=== PATIENT | female | born 2000 | race Caucasian/White ===

== ENCOUNTER → 2020-12-27 | Outpatient (CLI) | payer MEDICAID ==
[~2020-12-27] MED LIST: IBU600 MG PO; NATURAL IRON65 MG; PRENATAL FORMU1 EAC3 PO
== END ==
LOC: DIA.ED 10:16
DX: O24.419 Gestational diabetes mellitus in pregnancy, unspecified control (principal)
CPT/HCPCS: G0108

== ENCOUNTER 2021-02-26 09:59 | Inpatient (IN) | payer MEDICAID ==
[~2021-02-26] VITALS: Ht 160 cm; Wt 110.9 kg
[2021-02-26] VITALS (45 sets, daily range): BP systolic 120–180; BP diastolic 58–104; PULSE 59–148; TEMP 98.1–102.1
[2021-02-26 11:04] LABS: HEMOGLOBIN 11.7 g/dl (12.5-16.0); MEAN CELL VOLUME 82 fl (80.0-100.0); MEAN CORPUSCULAR HEMOGLOBIN 27 pg (27.0-31.0); MEAN CORPUSCULAR HGB CONC 33 g/dl (33.0-37.0); MEAN PLATELET VOLUME 10.6 fl (7.4-10.4); PLATELET COUNT 280 K/mm3 (130-400); REDCELL DISTRIBUTION WIDTH-CV 15.1 % (11.5-14.5)
[2021-02-26 11:06] LABS: HEMATOCRIT 35.1 % (37.0-47.0)
--- NOTE | 2021-02-26 11:20 | NUR ---
1015 PATIENT HERE FOR COMPLAINTS OF SROM AT 0900 THIS MORNING. EFM ON FHT 125 GOOD ACCELERATIONS. BABY VERY ACTIVE. CONTRACTIONS 5 MIN APART BUT PALPATE MILD. SVE /-2 LARGE AMOUNT CLEAR FLUID. AMNIOTRACE POSITIVE. DR CRUZ CALLED AND UPDATED ON ALL ABOVE INFORMATION. ORDERS TO ADMIT FOR LABOR. PATIETN ADMITTED AT THIS TIME AND IV STARTED. CONSENTS ALL SIGNED FOR INDUCTION WITH VERBAL UNDERSTANDING NOTED.
--- NOTE | 2021-02-26 11:24 | NUR ---
1100 PATIENT GDM. FIRST BLOOD SUGAR 95.
[2021-02-26] MEDS ORDERED: PRENATAL FORMU1 EAC3 PO (11:41)
[2021-02-26] MEDS ORDERED: NATURAL IRON65 MG (11:42)
--- NOTE | 2021-02-26 11:45 | NUR ---
1145 pitocin started per order for no changes at this time
[2021-02-26 11:53] LABS: BAND 3 % (0-10); LYMPHOCYTE 12 % (20.0-51.0); NEUTROPHILS 84 % (42.0-75.2); PLATELET ESTIMATE NORMAL (NORMAL)
--- NOTE | 2021-02-26 13:27 | NUR ---
1305 Lucero HERNANDEZ CRNA AT BEDSIDE FOR EPIDURAL PLACEMENT. PATIENT SITS ON EDGE OF BED. PATIENT TOLERATES PLACEMENT WELL. TEST DOSE AT 1311. SEE DUSTIN CHINCHILLA NOTES FOR QUESTIONS.
--- NOTE | 2021-02-26 17:26 | NUR ---
1725 PATIENT FEELS SOME PRESSURE. SVE 9/100/0 BLOODY SHOW NOTED. ATIENT REPOSISITONED TO HIGH RIGHT, POSITIONED WITH PEANUT BALL. DR ROLES CALLED AND UPDATED. NO NEW ORDERS NOTED
--- NOTE | 2021-02-26 22:18 | NUR ---
2018 PRACTICE PUSH WITH PT, INSTRUCTED ON PUSHING TECHNIQUES, MOVES BABY WELL WITH PUSH 2022 - CONTRERAS CATHETER DC'D WITH 200CC DARK YELLOW URINE OUT, CONTINUED TO PUSH WITH PT, RN REMAINS AT BEDSIDE COACHING PT WITH PUSHING
--- NOTE | 2021-02-26 22:38 | NUR ---
RN REMAINS AT BEDSIDE, COACHING PT ON PUSHING, DESCENT WITH PUSHING
--- NOTE | 2021-02-26 22:43 | NUR ---
RN REMAINS AT BEDSIDE, COACHING PT ON PUSHING, DESCENT WITH PUSHING EFFORTS
--- NOTE | 2021-02-26 22:45 | NUR ---
2101 - DR ENCARNACION TO BEDSIDE, PT UP IN [facility]ED[facility] FOR DELIVERY 2103 - DELIVERY OF VIABLE MALE , TO MOTHERS ABD, DRIED AND STIMULATED 2110 - SPONTANEOUS DELIVERY OF PLACENTA 2116 - METHERGINE .2MG GIVEN IM TO LEFT THIGH
[2021-02-27] VITALS: BP 128/79; PULSE 113; TEMP 99.5
[2021-02-27 00:30] VITALS: BP 128/79; PULSE 113
--- NOTE | 2021-02-27 01:05 | NUR ---
UP TO BATHROOM, UNABLE TO VOID AT THIS TIME, [facility] INSTRUCTED AND PERFORMED, PADS CHANGED NEW ICE PACK ON. PT STANDS UP OFF OF TOILET, THIS RN ON RIGHT SIDE OF PT HELPING PULL UP HER PANTIES, PT FALLS TO FLOOR, REPORTS THAT SHE IS NOT HURT, HELPED UP WITH ASSIST X2, IV TO LEFT WRIST PULLED OUT WHEN PT FELL. PT WALKS TO WHEELCHAIR OUTSIDE OF BATHROOM. THEN TRANSFERRED TO ROOM 214 PER WHEELCHAIR WITH INFANT AND SO. TRANSFERS TO BED WITH ASSIST
[2021-02-27 04:15] VITALS: BP 123/70; PULSE 93; TEMP 99.7
[2021-02-27 07:11] VITALS: BP 121/78; PULSE 80; TEMP 98.7
--- NOTE | 2021-02-27 09:23 | NUR ---
Initial visit; Parents thanked School Childcare Attendant for offering congratulations and God's blessings for the of their son. School Childcare Attendant thanked family for choosing [facility].
[2021-02-27 13:15] VITALS: BP 117/72; PULSE 95; TEMP 98.4
[2021-02-27 19:49] VITALS: BP 129/68; PULSE 77; TEMP 98.2
[2021-02-28 03:50] VITALS: BP 134/77; PULSE 82
[2021-02-28 08:25] VITALS: BP 106/49; PULSE 99; TEMP 98.4
[2021-02-28] MEDS ORDERED: IBU600 MG PO (08:52)
[2021-02-28 16:50] VITALS: BP 140/75; PULSE 84; TEMP 98.3
== END 2021-02-28 18:00 | disposition home or self-care (01) | DRG 805 ==
LOC: LDRO 09:59 → OB 10:24 → LDR 10:24 → OB 21:39
PROVIDERS: ADMIT Obstetrics & Gynecology
PROC: 10E0XZZ Delivery of Products of Conception, External Approach (ICD-10-PCS; principal; 2021-02-26)
PROC: 0KQM0ZZ Repair Perineum Muscle, Open Approach (ICD-10-PCS; 2021-02-26)
DX: O24.420 Gestational diabetes mellitus in childbirth, diet controlled (principal); O41.1230 Chorioamnionitis, third trimester, not applicable or unspecified; Z37.0 Single live birth; O70.1 Second degree perineal laceration during delivery; Z3A.40 40 weeks gestation of pregnancy; Z88.2 Allergy status to sulfonamides
CPT/HCPCS: J1580; J2210; J2590; J2795; J7120

== ENCOUNTER → 2023-05-26 | Outpatient (CLI) | payer MEDICAID ==
[~2023-05-26] MED LIST changes: +Iohexol 300 - 100 ML VIAL IV ONE; +NS 100 ML IV SCH
== END ==
LOC: COL.RAD 10:17
DX: H93.A9 Pulsatile tinnitus, unspecified ear (principal)
CPT/HCPCS: Q9967